=== PATIENT | male | born 1955 | race Caucasian/White ===

== ENCOUNTER 2018-04-29 11:28 | Outpatient (CLI) | payer OTHER | END 2018-04-29 11:29 | disposition critical access hospital (66) | LOC: EMS 11:28 | PROVIDERS: ATTEND Surgery | DX: M54.5 Low back pain (principal); R26.2 Difficulty in walking, not elsewhere classified | CPT/HCPCS: A0425; A0427 ==

== ENCOUNTER 2018-04-29 11:53 | Emergency (ER) | payer OTHER ==
--- NOTE | 2018-04-29 12:42 | XRAY Report ---
Reason: pain Procedure Date: 04/29/2018 Accession Number: [id number] / [id number] Procedure: XR - Lumbar Spine 2 View CPT Code: FULL RESULT: EXAM: LUMBOSACRAL SPINE RADIOGRAPHY EXAM DATE: 04/29/2018 12:35 PM. CLINICAL HISTORY: Pain. COMPARISONS: None. TECHNIQUE: 2 views. FINDINGS: Alignment: Normal. No spondylolisthesis or scoliosis. Bones: Five [id number] lumbar vertebral bodies are present. No fractures or bone lesions. Disks: Disk spaces are mostly preserved with anterior disk osteophyte complex at L2-L3. Facets: Moderate degenerative facet arthropathy at L5. Sacroiliac Joints: Unremarkable. Soft Tissues: Normal. The visualized bowel gas pattern is normal. IMPRESSION: Mild to moderate degenerative changes. RADIA
[2018-04-29] MEDS ORDERED: KETOROLAC 30 MG/ML VIAL IVP STA (13:20)
[2018-04-29] MEDS ORDERED: HYDROmorphone 1 MG/ML CARPUJECT IVP STA (13:20)
[2018-04-29] MEDS ORDERED: TRIAMCINOLONE 40 MG/ML VIAL IM STA (13:20)
[2018-04-29] MEDS ORDERED: LORazepam 2 MG/ML VIAL IVP STA (13:21)
--- NOTE | 2018-04-29 13:49 | CT Report ---
Reason: right flank pain for a month Procedure Date: 04/29/2018 Accession Number: [id number] / [id number] Procedure: CT - KUB CPT Code: FULL RESULT: EXAM: CT ABDOMEN AND PELVIS (CT KUB) EXAM DATE: 04/29/2018 01:37 PM. CLINICAL HISTORY: Right flank pain for a month. COMPARISONS: None. TECHNIQUE: Routine axial helical CT imaging was performed through the abdomen and pelvis without IV contrast. Reconstructions: Coronal and sagittal. In accordance with CT protocol optimization, one or more of the following dose reduction techniques were utilized for this exam: automated exposure control, adjustment of mA and/or KV based on patient size, or use of iterative reconstructive technique. FINDINGS: Lung Bases: Unremarkable. Right Kidney/Ureter: 2 nonobstructing 3 mm calculi are noted within the right kidney (image 33 of series 3 and 46 of series 3). There is no hydronephrosis or hydroureter. Left Kidney/Ureter: No stones, hydronephrosis, or hydroureter. No perinephric fat stranding. Other Solid Organs: There is diffuse hepatic steatosis. The spleen, pancreas, and adrenal glands demonstrate a normal noncontrast CT appearance Gallbladder/Bile Ducts: Unremarkable. Peritoneal Cavity: Diverticulosis of the descending and sigmoid colon is noted. There is no fat stranding or fluid collection to suggest the presence of diverticulitis. Pelvic Organs: No mass or cyst is seen within the pelvis. Vasculature: There is atherosclerosis of the aorta and its branches, including the coronary arteries. There is no evidence of an abdominal aortic aneurysm. Other: Degenerative changes of the thoracic and lumbar spine are noted. IMPRESSION: 2 nonobstructing 3 mm calculi within the right kidney. Diverticulosis of the descending and sigmoid colon without evidence of diverticulitis. Atherosclerosis of the aorta and its branches, including the coronary arteries. RADIA
--- NOTE | 2018-04-29 14:47 | ED Physician Documentation ---
PD HPI BACK PAIN - Stated complaint Stated Complaint: BACK PX - Chief complaint Chief Complaint: Back Pain - History obtained from History obtained from: Patient - History of Present Illness Timing - onset: How many months ago (1-2) Timing - duration: Months (1-2) Timing - details: Gradual onset, Waxing and waning (he has had pain right low back intermittently for 1-2 months, and abruptly worse a few days ago.) Location: Lower, Right, Other (does not radiate to leg nor abdomen) Quality: Pain, Sharp Associated symptoms: No: Fever, Weakness, Numbness Worsened by: Movement, Twisting, Palpation Contributing factors: No: Lifting, Twisting, Trauma Similar symptoms before: Has not had sx before Recently seen: Clinic (had Rx Ibuprofen and muscle relaxant. Not better. Seen again few days ago and changed Rx to Mobic and different muscle relaxant. Still hurting and worse the past couple of days.) Review of Systems Constitutional: denies: Fever, Chills, Myalgias Nose: denies: Rhinorrhea / runny nose, Congestion Throat: denies: Sore throat Respiratory: denies: Cough GI: denies: Abdominal Pain, Nausea, Vomiting, Diarrhea : denies: Dysuria, Frequency, Hematuria Skin: denies: Rash Musculoskeletal: reports: Back pain. denies: Neck pain Neurologic: denies: Focal weakness, Numbness PD PAST MEDICAL HISTORY - Past Medical History Past Medical History: Yes Cardiovascular: Hypertension, High cholesterol Endocrine/Autoimmune: Type 2 diabetes - Past Surgical History Past Surgical History: No - Present Medications Home Medications: Ambulatory Orders Medication Instructions Recorded Confirmed Amlodipine Besylate 10 mg PO DAILY 04/07/16 04/07/16 Aspirin 325 mg PO DAILY 04/07/16 04/07/16 Atorvastatin Calcium 40 mg PO DAILY 04/07/16 04/07/16 Losartan Potassium 100 mg PO DAILY 04/07/16 04/29/18 Metformin HCl 500 mg PO BID 04/07/16 04/29/18 Metoprolol Succinate 50 mg PO DAILY 04/07/16 04/29/18 Potassium Chloride 20 meq PO DAILY 04/07/16 04/07/16 hydroCHLOROthiazide 50 mg PO DAILY 04/07/16 04/29/18 [Hydrochlorothiazide] Dexamethasone [Decadron] 4 mg PO DAILY #5 tablet 04/29/18 Lidocaine Patch 5% [Lidoderm Patch] 1 patch TOP DAILY PRN #10 patch 04/29/18 Oxycodone HCl/Acetaminophen 1 each PO Q6H PRN #20 tablet 04/29/18 [Percocet 5-325 mg Tablet] diazePAM [Diazepam] 5 mg PO Q8H PRN #15 tablet 04/29/18 - Allergies Allergies/Adverse Reactions: Allergies Allergy/AdvReac Type Severity Reaction Status Date / Time No Known Drug Allergies Allergy Verified 04/29/18 12:07 - Social History Does the pt smoke?: No Smoking Status: Never smoker Does the pt drink ETOH?: No Does the pt have substance abuse?: No - Immunizations Immunizations are current?: Yes - POLST Patient has POLST: No PD ED PE NORMAL - Vitals Vital signs reviewed: Yes - General General: Alert and oriented X 3, Well developed/nourished, Other (appears in pain) - HEENT HEENT: Pharynx benign - Neck Neck: Supple, no meningeal sign, No adenopathy - Cardiac Cardiac: RRR, No murmur - Respiratory Respiratory: Clear bilaterally - Abdomen Abdomen: Soft, Non tender - Male Male : Deferred - Rectal Rectal: Deferred - Back Back: No CVA TTP, No spinal TTP (but is tender focally in right lower lumbar area and at upper SI area. Trigger point injection done there. ) - Derm Derm: Normal color, Warm and dry, No rash - Neuro Neuro: Alert and oriented X 3, No motor deficit, No sensory deficit Results - Vitals Vitals: Vital Signs - 24 hr 04/29/18 04/29/18 12:05 15:17 Temperature 37.1 C 36.5 C Heart Rate 90 83 Respiratory 18 16 Rate Blood Pressure 203/117 H 198/108 H O2 Saturation 96 99 Oxygen O2 Source Room air - Rads (name of study) lumbar spine Radiology: Prelim report reviewed (no acute process) KUB CT Radiology: Prelim report reviewed (no ureteral stones. Small stone in kidney, some diverticula, DDD in spine. No acute problems.) PD MEDICAL DECISION MAKING - ED course Complexity details: considered differential (nursing triage had done lumbar xray which is normal. More of concern would be alternate causes of flank pain, rather than muscular, so got KUB CT, which did not show any acute abnormality (renal stone, not ureteral; some DDD in spine, but no acute). ), d/w patient Departure - Departure Disposition: 01 Home, Self Care Clinical Impression: Lower back pain Qualifiers: Chronicity: acute Back pain laterality: right Sciatica presence: without sciatica Qualified Code(s): M54.5 - Low back pain Condition: Stable Record reviewed to determine appropriate education?: Yes Instructions: ED Low Back Pain Injury Follow-Up: Aneesh Meraz MD [Primary Care Provider] - Prescriptions: Dexamethasone [Decadron] 4 mg PO DAILY #5 tablet diazePAM [Diazepam] 5 mg PO Q8H PRN #15 tablet PRN Reason: Spasms Lidocaine Patch 5% [Lidoderm Patch] 1 patch TOP DAILY PRN #10 patch PRN Reason: pain Oxycodone HCl/Acetaminophen [Percocet 5-325 mg Tablet] 1 each PO Q6H PRN #20 tablet PRN Reason: pain Comments: Heat and gentle stretching for the back. Consider physical treatments such as massage or chiropractic as this will help as well. Continue the meloxicam previously prescribed and the muscle relaxant previously prescribed. Alternatively you could use diazepam as a muscle relaxant which may be a little more effective. Add Decadron steroid anti-inflammatory for the next several days. You can use lidocaine patches over the sore area as directed. Add Percocet pain medicine as needed for the pain and this should likely be a short- term as everything else leads to some improvement. Follow-up with your primary care later this week or early next week if not well improved. Discharge Date/Time: 04/29/18 15:16
[2018-04-29 15:19] VITALS: BP 198/108
== END 2018-04-29 15:16 | disposition home or self-care (01) ==
LOC: ED 11:53
DX: M47.816 Spondylosis without myelopathy or radiculopathy, lumbar region (principal); M47.814 Spondylosis without myelopathy or radiculopathy, thoracic region; N20.0 Calculus of kidney; K57.30 Diverticulosis of large intestine without perforation or abscess without bleeding; I10 Essential (primary) hypertension; E11.9 Type 2 diabetes mellitus without complications; Z79.84 Long term (current) use of oral hypoglycemic drugs; Z79.82 Long term (current) use of aspirin
CPT/HCPCS: 20552; 72100; 74176; 96374; 99283; J1170; J2060

== ENCOUNTER 2020-03-27 12:31 | Emergency (ER) | payer OTHER ==
[2020-03-27 13:05] LABS: BILIRUBIN,URINE NEGATIVE (NEGATIVE); GLUCOSE, URINE (UA) NEGATIVE (NEGATIVE); KETONES,URINE (UA) NEGATIVE (NEGATIVE); LEUKOCYTE ESTERASE, URINE NEGATIVE (NEGATIVE); NITRITE,URINE NEGATIVE (NEGATIVE); OCCULT BLOOD,URINE NEGATIVE (NEGATIVE); PH,URINE 5.5 PH (5.0-7.5); PROTEIN,URINE NEGATIVE (NEGATIVE); UROBILINOGEN,URINE 0.2 (NORMAL) E.U./dL (NORMAL)
[2020-03-27 13:06] LABS: CLARITY,URINE CLEAR (CLEAR)
--- NOTE | 2020-03-27 13:14 | ED Physician Documentation ---
PD HPI ABD PAIN - Stated complaint Stated Complaint: PAIN IN RT SIDE - Chief complaint Chief Complaint: Abd Pain - History obtained from History obtained from: Patient - History of Present Illness Timing - onset: Yesterday Timing - duration: Days (1) Timing - details: Abrupt onset, Still present, Waxing and waning (Onset yesterday right upper quadrant pain as aching pain which increased into the evening to fairly severe. It is decreased overnight and is moderately painful still today.) Quality: Cramping, Aching, Pain Location: RUQ Radiation: Upper back Improved by: No: Position Worsened by: Breathing, Palpation Associated symptoms: Nausea. No: Fever, Vomiting, Diarrhea Similar symptoms before: Has not had sx before Recently seen: Not recently seen Review of Systems Constitutional: denies: Fever, Chills Nose: denies: Rhinorrhea / runny nose, Congestion Throat: denies: Sore throat Respiratory: denies: Cough GI: reports: Abdominal Pain, Nausea. denies: Abdominal Swelling, Vomiting, Constipation, Diarrhea : denies: Dysuria, Frequency Skin: denies: Rash Musculoskeletal: denies: Extremity swelling Neurologic: denies: Generalized weakness, Focal weakness, Numbness, Near syncope PD PAST MEDICAL HISTORY - Past Medical History Cardiovascular: Hypertension, High cholesterol Endocrine/Autoimmune: Type 2 diabetes - Past Surgical History Past Surgical History: No - Present Medications Home Medications: Ambulatory Orders Medication Instructions Recorded Confirmed Amlodipine Besylate 10 mg PO DAILY 04/07/16 03/27/20 Aspirin 81 mg PO DAILY 04/07/16 03/27/20 Atorvastatin Calcium 40 mg PO DAILY 04/07/16 03/27/20 Losartan Potassium 100 mg PO DAILY 04/07/16 03/27/20 Metformin HCl 500 mg PO BID 04/07/16 03/27/20 Metoprolol Succinate 50 mg PO DAILY 04/07/16 03/27/20 Potassium Chloride 20 meq PO DAILY 04/07/16 03/27/20 hydroCHLOROthiazide 50 mg PO DAILY 04/07/16 03/27/20 [Hydrochlorothiazide] diazePAM [Diazepam] 5 mg PO Q8H PRN #15 tablet 04/29/18 03/27/20 Hydrocodone/Acetaminophen [Paradise 1 each PO Q6H PRN #15 tablet 03/27/20 5-325 Tablet] Ondansetron Odt [Zofran] 4 mg TL Q6H PRN #10 tablet 03/27/20 - Allergies Allergies/Adverse Reactions: Allergies Allergy/AdvReac Type Severity Reaction Status Date / Time No Known Drug Allergies Allergy Verified 03/27/20 12:38 - Social History Does the pt smoke?: No Smoking Status: Never smoker Does the pt drink ETOH?: No Does the pt have substance abuse?: No - Immunizations Immunizations are current?: Yes - POLST Patient has POLST: No PD ED PE NORMAL - Vitals Vital signs reviewed: Yes - General General: Alert and oriented X 3, Well developed/nourished - HEENT HEENT: PERRL (nonicteric), Pharynx benign - Neck Neck: Supple, no meningeal sign, No adenopathy - Cardiac Cardiac: RRR, No murmur - Respiratory Respiratory: Clear bilaterally - Abdomen Abdomen: Normal bowel sounds, Soft, Non distended, No organomegaly, Other (There was guarding in the right upper quadrant. There is no percussion or rebound tenderness. positive Mendiola's sign. ) - Back Back: No CVA TTP - Derm Derm: Normal color, Warm and dry - Neuro Neuro: Alert and oriented X 3, No motor deficit, Normal speech Eye Opening: Spontaneous Motor: Obeys Commands Verbal: Oriented GCS Score: 15 Results - Vitals Vitals: Vital Signs - 24 hr 03/27/20 03/27/20 03/27/20 12:38 13:42 15:00 Temperature 36.9 C 36.1 C L Heart Rate 88 91 75 Respiratory 18 16 16 Rate Blood Pressure 154/95 H 170/97 H 143/87 H O2 Saturation 98 98 98 03/27/20 16:45 Temperature 36.3 C L Heart Rate 83 Respiratory 16 Rate Blood Pressure 151/91 H O2 Saturation 98 Oxygen O2 Source Room air - Labs Labs: Laboratory Tests 03/27/20 03/27/20 03/27/20 12:50 13:30 13:30 WBC 7.5 RBC 4.42 L Hgb 15.2 Hct 43.5 MCV 98.4 H MCH 34.4 H MCHC 34.9 RDW 12.1 Plt Count 187 MPV 10.3 Neut # (Auto) 4.9 Lymph # (Auto) 1.9 [place] # (Auto) 0.6 Eos # (Auto) 0.1 Baso # (Auto) 0.0 Absolute Nucleated RBC 0.00 Nucleated RBC % 0.0 Sodium 135 Potassium 3.1 L Chloride 99 L Carbon Dioxide 24 Anion Gap 12.0 BUN 21 H Creatinine 1.1 Estimated GFR (MDRD) 67 L Glucose 161 H Calcium 9.2 Total Bilirubin 1.1 H AST 58 H ALT 99 H Alkaline Phosphatase 59 Total Protein 8.2 Albumin 4.5 Globulin 3.7 Albumin/Globulin Ratio 1.2 Lipase 26 Urine Color YELLOW Urine Clarity CLEAR Urine pH 5.5 Ur Specific [place] 1.020 Urine Protein NEGATIVE Urine Glucose (UA) NEGATIVE Urine Ketones NEGATIVE Urine Occult Blood NEGATIVE Urine Nitrite NEGATIVE Urine Bilirubin NEGATIVE Urine Urobilinogen 0.2 (NORMAL) Ur Leukocyte Esterase NEGATIVE Ur Microscopic Review NOT INDICATED Urine Culture Comments NOT INDICATED - Rads (name of study) gallbladder U/S Radiology: Prelim report reviewed (distended gallbladder. no wall thickening. no stones. ), See rad report PD MEDICAL DECISION MAKING - ED course Complexity details: re-evaluated patient (distended GB but no stones and no cholecystitis. Consider likely small passed sludge or stone and improving. ), considered differential (Symptoms sound likely to be biliary and will evaluate for acute cholecystitis with labs and ultrasound. His pain is only moderate right now so we will start with some simple medicines. Increase if needed.), d/w patient Departure - Departure Disposition: 01 Home, Self Care Clinical Impression: Right upper quadrant abdominal pain, Biliary colic Condition: Stable Record reviewed to determine appropriate education?: Yes Instructions: ED Abdominal Pain Unkn Cause, ED Abdominal Pain Gallstone Poss Follow-Up: Aneesh Meraz MD [Primary Care Provider] - Prescriptions: Hydrocodone/Acetaminophen [Paradise 5-325 Tablet] 1 each PO Q6H PRN #15 tablet PRN Reason: Pain Ondansetron Odt [Zofran] 4 mg TL Q6H PRN #10 tablet PRN Reason: Nausea / Vomiting Comments: Your ultrasound did not show any obvious gallstones or inflammation of the gallbladder. Your blood test showed a slight elevation of liver enzymes. It is possible you may have had some sludge or a small stone that passed out from the gallbladder causing your symptoms last night into today. It does not look like acute gallbladder infection. As such I would not necessarily anticipate recurring episodes. However you should have bland food and low-fat diet over the next several days to week in particular. If you have recurrent episodes, use ondansetron for nausea and hydrocodone for pain and can add ibuprofen as well. Return if significant episode again not relieved by the above medicines. Follow-up with your primary care if recurrent episodes for further evaluation of gallbladder or other causes. Discharge Date/Time: 03/27/20 17:07
[2020-03-27] MEDS ORDERED: ONDANSETRON 4 MG/2 ML VIAL IVP STA (13:52)
[2020-03-27] MEDS ORDERED: SODIUM CHLORIDE 0.9% 1,000 ML IV STA (13:52)
[2020-03-27] MEDS ORDERED: KETOROLAC 30 MG/ML VIAL IVP STA (13:52)
[2020-03-27 14:03] LABS: BASOPHILS % (AUTO) 0.4 %; EOSINOPHILS # (AUTO) 0.1 10^3/uL (0.0-0.7); EOSINOPHILS % (AUTO) 1.2 %; HGB - HEMOGLOBIN 15.2 g/dL (14.0-18.0); LYMPHOCYTES # (AUTO) 1.9 10^3/uL (1.5-3.5); LYMPHOCYTES % (AUTO) 25.2 %; MEAN CORPUSCULAR HEMOGLOBIN 34.4 pg (27.0-31.0); MEAN CORPUSCULAR HGB CONC 34.9 g/dL (32.0-36.0); MEAN CORPUSCULAR VOLUME 98.4 fL (80.0-94.0); MEAN PLATELET VOLUME 10.3 fL (7.4-11.4); MONOCYTES # (AUTO) 0.6 10^3/uL (0.0-1.0); MONOCYTES % (AUTO) 8.5 %; NEUTROPHILS # (AUTO) 4.9 10^3/uL (1.5-6.6); NEUTROPHILS % (AUTO) 64.4 %; PLT - PLATELET COUNT 187 10^3/uL (130-450); RED BLOOD COUNT 4.42 10^6/uL (4.70-6.10); RED CELL DISTRIBUTION WIDTH 12.1 % (12.0-15.0); WHITE BLOOD COUNT 7.5 x10^3/uL (4.8-10.8)
[2020-03-27 14:22] LABS: ALBUMIN 4.5 g/dL (3.2-5.5); ALBUMIN/GLOBULIN RATIO 1.2 (1.0-2.2); BILIRUBIN,TOTAL 1.1 mg/dL (0.2-1.0); CALCIUM 9.2 mg/dL (8.5-10.3); CREATININE 1.1 mg/dL (0.6-1.2); TOTAL PROTEIN 8.2 g/dL (6.7-8.2)
[2020-03-27 16:47] VITALS: BP 151/91
--- NOTE | 2020-03-27 17:12 | Ultrasound Report ---
PROCEDURE: Abdomen Limited INDICATIONS: Right upper quadrant pain last night into today TECHNIQUE: Real-time scanning was performed of the abdominal and retroperitoneal organs, with image documentatio n. COMPARISON: CT KUB 04/29/2018. FINDINGS: Liver: Within normal limits in size. Increased in echogenicity. Gallbladder: Limited visualization. Distended. No stones seen. Normal wall measures 3 mm. No perichol ecystic fluid. Biliary ducts: Intrahepatic bile ducts are non-dilated. Extrahepatic bile duct caliber measures 3 m m. Normal is 6-7 mm or less in diameter, or 10 mm or less post-cholecystectomy. Pancreas: Not well seen. The body is partially visualized. Right kidney: Measures 12.3 cm. Cortex 1.4 cm. No hydronephrosis. IMPRESSION: Limited examination due to acoustic windows, bowel gas, and body habitus. 1. Distended gallbladder. No gallstones or gallbladder wall thickening to suggest acute cholecystitis . Patient is mildly tender during the exam. 2. No hydronephrosis of the right kidney. Reviewed by: Tony Jon MD on 03/27/2020 4:11 PM [facility] Approved by: Tony Jon MD on 03/27/2020 4:11 PM [facility] Station ID: [id number]
== END 2020-03-27 17:07 | disposition home or self-care (01) ==
LOC: ED 12:31
DX: K80.50 Calculus of bile duct without cholangitis or cholecystitis without obstruction (principal); I10 Essential (primary) hypertension; E11.9 Type 2 diabetes mellitus without complications; Z79.84 Long term (current) use of oral hypoglycemic drugs
CPT/HCPCS: 36415; 80053; 81001; 81003; 83690; 85025; 87086; 96374; 99284

== ENCOUNTER 2020-04-08 10:40 | Outpatient (CLI) | payer OTHER ==
[2020-04-08] MEDS ORDERED: IOVERSOL 320 50 ML VIAL ONE (10:54)
[2020-04-08] MEDS ORDERED: IOVERSOL 320 100 ML VIAL IVP ONE ×2 (10:54→13:29)
--- NOTE | 2020-04-08 12:41 | CT Report ---
PROCEDURE: Abdomen/Pelvis W INDICATIONS: RUQ PAIN CONTRAST: IV CONTRAST: Optiray 320 ml: 100 PO CONTRAST: Optiray 320 ml50 TECHNIQUE: After the administration of oral and intravenous contrast, 5 mm thick sections acquired from the diap hragms to the symphysis. 5 mm thick coronal and sagittal reformats were acquired. For radiation dos e reduction, the following was used: automated exposure control, adjustment of mA and/or kV accordin g to patient size. COMPARISON: CT KUB dated 04/29/2018 FINDINGS: Image quality: Excellent. ABDOMEN: Lung bases: Lung bases are clear. Heart size is normal. Solid organs: Liver and spleen are normal in size and enhancement. Diffuse hepatic steatosis. Gallb ladder is unremarkable. Biliary system is non dilated. Pancreas enhances normally. No adrenal nodu les. Kidneys demonstrate normal size and enhancement, without hydronephrosis. Peritoneum and bowel: Ill-defined inflammatory appearing density in the right abdomen adjacent to the gallbladder and the hepatic flexure of the colon. Reference image 38/3 (axial images) 2. Sigmoid diverticulosis. Excellent 3. Hepatic steatosis. And images 10 through 13/6 (coronal reformats). However the adjacent colon and the gallbladder are unremarkable. Findings may potentially represent acute epiploic appendicitis. Can not exclude peritoneal carcinomatosis. Bowel loops are unremarkable. No free air or free fluid. Bowel loops demonstrate normal wall thickness and caliber. No free fluid or air. Sigmoid diverticulosis without evidence of diverticulitis. Nodes and vessels: Shotty tiny scattered mesenteric lymph nodes. No retroperitoneal or mesenteric tonya nopathy by size criteria. Aorta and inferior vena cava are normal in size. Miscellaneous: No ventral hernias. PELVIS: Genitourinary: Bladder wall thickness is normal. Miscellaneous: Bilateral fat-containing inguinal hernias. No inguinal adenopathy. Bones: No suspicious bony lesions. No vertebral body compression fractures. IMPRESSION: 1. Right upper quadrant abnormality may potentially represent acute epiploic appendicitis. Peritoneal carcinomatosis can also have a similar appearance. Consider repeat CT with contrast in 2-3 months. 2. Sigmoid diverticulosis without evidence of diverticulitis. 3. Hepatic steatosis. 4. Bilateral fat-containing inguinal hernias. Reviewed by: Jude Gomez MD on 04/08/2020 12:40 PM PST Approved by: Jude Gomez MD on 04/08/2020 12:40 PM PST Station ID: [id number]
[2020-04-08] MEDS ORDERED: IOVERSOL 320 50 ML VIAL PO ONE (13:28)
== END 2020-04-08 10:41 | disposition home or self-care (01) ==
LOC: DI 10:40
PROVIDERS: ATTEND Nurse Practitioner Family
DX: R10.11 Right upper quadrant pain (principal); R93.5 Abnormal findings on diagnostic imaging of other abdominal regions, including retroperitoneum; K40.20 Bilateral inguinal hernia, without obstruction or gangrene, not specified as recurrent; K57.30 Diverticulosis of large intestine without perforation or abscess without bleeding; K76.0 Fatty (change of) liver, not elsewhere classified
CPT/HCPCS: 74177; Q9967

== ENCOUNTER 2020-06-24 17:41 | Outpatient (CLI) | payer OTHER | END 2020-06-24 17:42 | disposition home or self-care (01) | LOC: COV 17:41 | PROVIDERS: ATTEND Family Medicine | DX: U07.1 COVID-19 (principal) ==

== ENCOUNTER 2020-08-18 06:47 | Outpatient (CLI) | payer OTHER ==
[2020-08-18] MEDS ORDERED: IOPAMIDOL-300 50 ML VIAL ONE (07:16)
[2020-08-18] MEDS ORDERED: IOPAMIDOL-300 100 ML VIAL ONE (07:16)
[2020-08-18 07:32] LABS: CREATININE 0.9 mg/dL (0.6-1.2)
[2020-08-18] MEDS ORDERED: IOPAMIDOL-300 50 ML VIAL PO ONE (08:28)
[2020-08-18] MEDS ORDERED: IOPAMIDOL-300 100 ML VIAL IVP ONE (08:28)
--- NOTE | 2020-08-18 09:35 | CT Report ---
PROCEDURE: Abdomen/Pelvis W INDICATIONS: ABNORMALITY SEEN IN RUQ CONTRAST: IV CONTRAST: Isovue 300 ml: 100 PO CONTRAST: Isovue 300 ml50 TECHNIQUE: After the administration of intravenous contrast, 5 mm thick sections acquired from the diaphragms to the symphysis. 5 mm thick coronal and sagittal reformats were acquired. For radiation dose reducti on, the following was used: automated exposure control, adjustment of mA and/or kV according to scottie ent size. COMPARISON: None. FINDINGS: Image quality: Excellent. ABDOMEN: Lung bases: Lung bases are clear. Heart size is normal. Solid organs: Severe hepatic steatosis has worsened in the interval since the prior study. Spleen, ga llbladder, pancreas, adrenal glands, and kidneys are unremarkable. Peritoneum and bowel: Previously seen fat stranding and inflammatory change in the right upper quadra nt has entirely resolved, indicating that the abnormality depicted on the prior study likely represen jenaro epiploic appendagitis. There is no pericolonic or mesenteric fat stranding currently. Extensive d istal colonic and sigmoid colonic diverticulosis without findings of diverticulitis. No abnormally di lated or obviously thickened loop of bowel. No free fluid or free air Nodes and vessels: No threshold enlarged retroperitoneal or intra-abdominal lymph nodes by CT size cr iteria. Nonaneurysmal atherosclerotic abdominal aorta. IVC is within normal limits. Miscellaneous: No ventral hernias. PELVIS: Genitourinary: Bladder wall thickness is normal. Miscellaneous: No inguinal hernias or adenopathy. Bones: No suspicious bony lesions. No vertebral body compression fractures. IMPRESSION: Resolution of previously seen fat stranding in the right upper quadrant, consistent with resolution o f epiploic appendagitis. Severe hepatic metastasis has worsened in the interval. Reviewed by: Oliver Sanders MD on 08/18/2020 9:34 AM PDT Approved by: Oliver Sanders MD on 08/18/2020 9:34 AM PDT Station ID: [id number]
== END 2020-08-18 06:48 | disposition home or self-care (01) ==
LOC: LAB 06:47
PROVIDERS: ATTEND Surgery
DX: K76.0 Fatty (change of) liver, not elsewhere classified (principal)
CPT/HCPCS: 36415; 74177; 82565; Q9967

== ENCOUNTER 2023-05-30 08:00 | Outpatient (CLI) | payer MEDICARE, OTHER | END 2023-05-30 23:59 | disposition home or self-care (01) | LOC: LAB.S 08:00 | PROVIDERS: ATTEND Emergency Medicine | DX: J02.8 Acute pharyngitis due to other specified organisms (principal) | CPT/HCPCS: 87070 ==

== ENCOUNTER 2023-11-16 14:43 | Outpatient (CLI) | payer MEDICARE ==
[2023-11-16] MEDS ORDERED: iohexoL-300 100 ML VIAL ONE (14:50)
[2023-11-16] MEDS ORDERED: DIATRIZOATE MEGLU/DIATRIZO SOD 30 ML BOTTLE PO ONE (14:50)
[2023-11-16] MEDS: DIATRIZOATE MEGLU/DIATRIZO SOD 30 ML BOTTLE PO ONE (16:50)
[2023-11-16] MEDS: iohexoL-300 100 ML VIAL IVP ONE (16:50)
--- NOTE | 2023-11-16 21:03 | CT Report ---
PROCEDURE: Abdomen W INDICATIONS: STEATOSIS OF LIVER CONTRAST: 100 ml iso 300 TECHNIQUE: CT scan of the abdomen was performed. Intravenous contrast media was administered. Images recorded an d evaluated at appropriate window settings. Reformats: coronal and sagittal. For radiation dose reduc tion, the following was used: automated exposure control, adjustment of mA and/or kV according to pat ient size. COMPARISON: 08/18/2020 FINDINGS: Image quality: Mildly suboptimal due to motion artifact. Lower chest: Unremarkable. Liver: No solid mass. Hepatic steatosis. Focal fat adjacent to the falciform ligament. Gallbladder: No radiopaque stones or wall thickening. Biliary tree: No intrahepatic or extrahepatic dilation, accounting for age. Spleen: No splenomegaly. Pancreas: No pancreatic ductal dilation. Adrenals: No adrenal nodule. Kidneys and ureters: No hydronephrosis. No renal cystic lesion which requires follow up. No solid mas s. lobulation. Stomach, bowel and peritoneum: No gastric or small bowel dilation. No abnormal wall thickening. No pa thologic free fluid. Diverticulosis without evidence of diverticulitis. Lymph nodes: No central or retroperitoneal adenopathy. Vessels: No infrarenal aortic aneurysm. Patent portal vein. There is soft tissue attenuation surround ing the common hepatic artery (series 2, image 46). Bones: No aggressive osseous abnormality. Ankylosis of the sacroiliac joints. Other: No significant ventral hernia. IMPRESSION: Soft tissue attenuation surrounding the common hepatic artery. Differential includes artifact, vascul itis or prominent chain of lymph nodes. Short-term follow-up (3 months) and correlation with inflamma tory laboratory markers should be considered. Hepatic steatosis without mass. Colonic diverticulosis without evidence of diverticulitis. Ankylosis of the sacroiliac joints, which may indicate ankylosing spondylitis. Reviewed by: Nik Gatica MD on 11/16/2023 9:02 PM PDT Approved by: Nik Gatica MD on 11/16/2023 9:02 PM PDT Station ID: [id number]
== END 2023-11-16 14:44 | disposition home or self-care (01) ==
LOC: DI 14:43
PROVIDERS: ATTEND Registered Nurse
DX: K76.0 Fatty (change of) liver, not elsewhere classified (principal); K57.30 Diverticulosis of large intestine without perforation or abscess without bleeding; M43.28 Fusion of spine, sacral and sacrococcygeal region
CPT/HCPCS: 74160; Q9963; Q9967

== ENCOUNTER 2023-12-03 08:47 | Outpatient (CLI) | payer MEDICARE ==
--- NOTE | 2023-12-03 12:46 | Ultrasound Report ---
PROCEDURE: Pelvic Limited INDICATIONS: INGUINAL PAIN TECHNIQUE: Real-time transabdominal scanning was performed left groin region, with image documentation. COMPARISON: None. FINDINGS: In the area of the patient's pain over the left lower quadrant there is no evidence of any focal russell d or cystic lesion. Valsalva maneuver was performed and shows no evidence for groin hernia. No other significant findings are identified. IMPRESSION: No significant findings in the area of the patient's pain over the left groin without ev idence for hernia identified. Reviewed by: Liu Shepard MD on 12/03/2023 12:44 PM PDT Approved by: Liu Shepard MD on 12/03/2023 12:44 PM PDT Station ID: [id number]
== END 2023-12-03 08:48 | disposition home or self-care (01) ==
LOC: DI 08:47
PROVIDERS: ATTEND Registered Nurse
DX: R10.2 Pelvic and perineal pain (principal)